=== PATIENT | male | born 1960 | race Caucasian/White ===

== ENCOUNTER 2018-02-16 18:55 | Emergency (ER) | payer OTHER ==
[2018-02-16] MEDS ORDERED: HYDROCODONE/ACETAMINOPHEN 5-325 MG TABLET PO ONE (19:33)
--- NOTE | 2018-02-16 19:34 | ER Document Report ---
ED Hand/Wrist Injury - General Chief Complaint: Thumb Injury Stated Complaint: RIGHT THUMB INJURY Time Seen by Provider: 02/16/18 19:32 Mode of Arrival: Ambulatory Information source: Patient Notes: Patient is a 58-year-old male who presents to the ER today for right thumb injury and head injury after trying to change a tire on his truck and the favio falling, landing on his thumb. He states that the door of the truck swung back and hit him in the left side of the head. He did not lose consciousness, has had no nausea, vomiting, blurred vision. He states he has a large goose egg to the left of his forehead. Patient admits to pain to the right thumb but denies injury elsewhere or pain elsewhere. He states that the thumb was "shaped like an L" and he put it back into place before coming to the emergency department. He denies any numbness or tingling at this time. TRAVEL OUTSIDE OF THE [place] IN LAST 30 DAYS: No - Related Data Allergies/Adverse Reactions: No Known Allergies Allergy (Unverified 02/16/18 18:57) Past Medical History - General Information source: Patient - Social History Smoking Status: Current Every Day Smoker Family History: Reviewed & Not Pertinent Review of Systems - Review of Systems Constitutional: No symptoms reported EENT: No symptoms reported Cardiovascular: No symptoms reported Respiratory: No symptoms reported Gastrointestinal: No symptoms reported Genitourinary: No symptoms reported Male Genitourinary: No symptoms reported Musculoskeletal: See HPI Skin: No symptoms reported Hematologic/Lymphatic: No symptoms reported Neurological/Psychological: See HPI Physical Exam - Vital signs Vitals: Temp Pulse Resp BP Pulse Ox 98.5 F 102 H 18 147/94 H 97 02/16/18 19:05 02/16/18 19:05 02/16/18 19:05 02/16/18 19:05 02/16/18 19:05 - Notes Notes: PHYSICAL EXAMINATION: GENERAL: Uncomfortable appearing, holding right thumb, but in no acute distress. HEAD: Atraumatic, normocephalic. EYES: Pupils equal round and reactive to light, extraocular movements intact, sclera anicteric, conjunctiva are normal. ENT: ear canals without erythema or foreign body, TMs pearly anthony with good bony landmarks, nares patent, oropharynx clear without exudates. Moist mucous membranes. Airway patent NECK: Normal range of motion, supple without lymphadenopathy LUNGS: CTAB and equal. No wheezes rales or rhonchi. HEART: Regular rate and rhythm without murmurs ABDOMEN: Soft, no tenderness. No guarding, no rebound BACK: no vertebral tenderness, normal ROM GI/: no CVA tenderness EXTREMITIES: Tenderness to the base of the right thumb, good capillary refill, normal range of motion, no pitting edema. No cyanosis. NEUROLOGICAL: Cranial nerves grossly intact. Normal sensory/motor exams. Good and equal strength bilaterally, Kernig and Brudzinski's signs negative, Romberg' s test normal, normal heel to miranda testing PSYCH: Normal mood, normal affect. SKIN: Warm, Dry, normal turgor, no rashes or lesions noted Course - Re-evaluation Re-evalutation: 02/16/18 21:27 X-ray reveals a fracture to the first proximal phalanx, slight angulation, patient placed in a thumb spica splint. I see no reason for CAT scan today as he did not lose consciousness and has no neurological deficits. 02/16/18 21:27 Patient given orthopedic follow-up. - Vital Signs Vital signs: Temp Pulse Resp BP Pulse Ox 98.5 F 90 18 149/87 H 98 02/16/18 19:05 02/16/18 21:19 02/16/18 21:19 02/16/18 21:19 02/16/18 21:19 Discharge - Discharge Clinical Impression: Thumb fracture Qualifiers: Encounter type: initial encounter Fracture type: closed Phalanx: proximal Fracture alignment: displaced Laterality: right Qualified Code(s): S62.511A - Displaced fracture of proximal phalanx of right thumb, initial encounter for closed fracture Condition: Stable Disposition: HOME, SELF-CARE Additional Instructions: Return immediately for any new or worsening symptoms. Follow up with orthopedic doctor, call tomorrow to make followup appointment. Referrals: WESTON VALENCIA, [ACTIVE STAFF] - Follow up as needed
--- NOTE | 2018-02-16 20:12 | RADIOLOGY REPORT (SQ) ---
EXAM DESCRIPTION: FINGER RIGHT COMPLETED DATE/TIME: 02/16/2018 7:59 pm REASON FOR STUDY: Pain s/p injury COMPARISON: None. NUMBER OF VIEWS: Three views. TECHNIQUE: AP, lateral, and oblique images acquired of the right thumb. LIMITATIONS: None. FINDINGS: MINERALIZATION: Normal. BONES: There is a transverse fracture of the base of the 1st proximal phalanx. There may be a fractu re component extending to the joint. SOFT TISSUES: No soft tissue swelling. No foreign body. OTHER: No other significant finding. IMPRESSION: Fracture of the 1st proximal phalanx as described. Slight angulation is seen on the lat eral view. COMMENT: SITE OF TRAUMA/COMPLAINT MARKED/STAMP COMPLETED: Yes TECHNICAL DOCUMENTATION: JOB ID: [id number] [employer]- All Rights Reserved Reading location - IP/workstation name: [email or web address]
[2018-02-16] MEDS ORDERED: HYDROCODONE/ACETAMINOPHEN 5-325 MG (6 TAB/ER DISP) PO PRN (20:33)
[2018-02-16 21:20] VITALS: BP 149/87
== END 2018-02-16 21:19 | disposition home or self-care (01) ==
LOC: ER 18:55
DX: S62.511A Displaced fracture of proximal phalanx of right thumb, initial encounter for closed fracture (principal); S09.90XA Unspecified injury of head, initial encounter; W20.8XXA Other cause of strike by thrown, projected or falling object, initial encounter; Y93.89 Activity, other specified; F17.200 Nicotine dependence, unspecified, uncomplicated
CPT/HCPCS: 99283

== ENCOUNTER 2018-06-26 04:20 | Emergency (ER) | payer SELFPAY ==
[2018-06-26 04:29] VITALS: BP 138/78
--- NOTE | 2018-06-26 06:24 | RADIOLOGY REPORT (SQ) ---
CLINICAL DATA: 58-year-old with pain and swelling of the testicles. TECHNICAL DATA: Sagittal and transverse ultrasound imaging and measurement of bilateral testicles with color flow was performed. Comparison: None. FINDINGS: The right testicle measures 4.0 x 3.0 x 3.0 cm and is homogeneous in echogenicity. No focal masses are identified. The right epididymal head measures 1.0 x 1.7 x 0.9 cm. There is normal color flow to the right epididymis.. Doppler imaging demonstrates normal pulsed and color Doppler flow. There is a small right-sided hydrocele. . The left testicle measures 4.5 x 2.4 x 2.8 cm and is homogeneous in echogenicity. The left epididymal head measures 1.0 x 0.8 x 0.7 cm. There is normal color flow to the left epididymal head. Doppler imaging demonstrates normal pulsed and color Doppler flow to the left testicle. There is a very small left-sided hydrocele. There is prominence of the pampiniform plexus during Valsalva with dilatation of the venous structures up to 4 mm. This suggests a varicocele. There are prominent oval hypoechoic mass lesions in the right inguinal region with focal areas of central increased echogenicity compatible with lymph nodes. The largest measures approximately 2.2 cm in length. IMPRESSION: 1. Small right-sided hydrocele. Otherwise, normal sonographic evaluation of the right testicle. 2. Findings suggest a left-sided varicocele and trace left hydrocele. 3. Prominent benign-appearing right inguinal lymph nodes.
[2018-06-26 07:01] LABS: APPEARANCE,URINE SLIGHTLY-CLOUDY; BILIRUBIN,URINE NEGATIVE (NEGATIVE); COLOR,URINE AMBER; GLUCOSE, URINE NEGATIVE (NEGATIVE); KETONES,URINE NEGATIVE (NEGATIVE); LEUKOCYTE ESTERASE,URINE TRACE (NEGATIVE); NITRITE,URINE NEGATIVE (NEGATIVE); PROTEIN,URINE 30 mg/dL (NEGATIVE); URINE SPECIFIC GRAVITY 1.016
[2018-06-26] MEDS ORDERED: LIDOCAINE 1% INJ-PF (10 MG/ML) 30 ML SDV INFIL ONE (07:41)
[2018-06-26] MEDS ORDERED: CEFTRIAXONE INJ 250 MG VIAL IM ONE (07:41)
[2018-06-26] MEDS ORDERED: LEVOFLOXACIN 750 MG TABLET PO ONE (07:45)
--- NOTE | 2018-06-26 07:52 | ER Document Report ---
ED GI/ - General Chief Complaint: Testicular Swelling Stated Complaint: TESTICULAR SWELLING Time Seen by Provider: 06/26/18 06:06 Mode of Arrival: Ambulatory Information source: Patient TRAVEL OUTSIDE OF THE [place] IN LAST 30 DAYS: No - HPI Patient complains to provider of: Other - 58-year-old male that presents for evaluation of testicular swelling and pain over the of the last 2 days. Which is uncomfortable and causes some pain particularly when ambulating or sitting. He notes that slightly interfering now with his work. He is sexually active with a single partner however he thinks that she is likely sleeping with multiple partners at this time they do not use barrier protection. - Related Data Allergies/Adverse Reactions: No Known Allergies Allergy (Verified 06/26/18 06:01) Past Medical History - General Information source: Patient - Social History Smoking Status: Unknown if Ever Smoked Family History: Reviewed & Not Pertinent Patient has suicidal ideation: No Patient has homicidal ideation: No Renal/ Medical History: Denies: Hx Peritoneal Dialysis Review of Systems - Review of Systems -: Yes All other systems reviewed and negative Physical Exam - Vital signs Vitals: Temp Pulse Resp BP Pulse Ox 98.2 F 109 H 18 138/78 H 95 06/26/18 04:20 06/26/18 04:20 06/26/18 04:20 06/26/18 04:20 06/26/18 04:20 - General General appearance: Appears well In distress: None - HEENT Head: Normocephalic Eyes: Normal Conjunctiva: Normal Cornea: Normal Extraocular movements intact: Yes Eyelashes: Normal Pupils: PERRL - Respiratory Respiratory status: No respiratory distress Chest status: Nontender Breath sounds: Normal Chest palpation: Normal - Cardiovascular Rhythm: Regular Heart sounds: Normal auscultation Murmur: No - Abdominal Inspection: Normal Distension: No distension Tenderness: Nontender - Genitourinary Tenderness: Testicle tender, Epididymis tender Cremasteric reflex: Left reflex absent Scrotum: Swelling, Redness - Extremities General upper extremity: Normal inspection, Nontender, Normal ROM, Normal strength General lower extremity: Normal inspection, Nontender, Normal ROM, Normal strength - Neurological Neuro grossly intact: Yes Cognition: Normal Orientation: AAOx4 Redrock Coma Scale Eye Opening: Spontaneous [place] Coma Scale Verbal: Oriented Osvaldo Coma Scale Motor: Obeys Commands Osvaldo Coma Scale Total: 15 Speech: Normal Cranial nerves: Normal Cerebellar coordination: Normal Motor strength normal: LUE, RUE, LLE, RLE - Psychological Associated symptoms: Normal affect Course - Re-evaluation Re-evalutation: 06/26/18 09:08 58-year-old man with testicular swelling as well as pain in the setting of having intercourse with probable sexual partner who is sleeping with multiple partners. Patient had an ultrasound ordered initially for evaluation of potential underlying torsion, ultrasound is consistent with his clinical exam and demonstrates epididymoorchitis. He is at risk for both sexually transmitted infection as well as enteric infection given his age, because of his risk factors will plan for treatment with rocephin and levaquin. He will be given strict return precautions and a brief prescription of narcotic pain medication I do not believe this represents more serious underlying cause of his testicular swelling including but not limited to incarcerated hernia or torsion. - Vital Signs Vital signs: Temp Pulse Resp BP Pulse Ox 98.2 F 109 H 18 138/78 H 95 06/26/18 04:20 06/26/18 04:20 06/26/18 04:20 06/26/18 04:20 06/26/18 04:20 - Laboratory Laboratory results interpreted by me: 06/26/18 06:20 Urine Protein 30 H Urine Blood MODERATE H Urine Urobilinogen 4.0 H Ur Leukocyte Esterase TRACE H Discharge - Discharge Clinical Impression: Acute epididymitis, Orchitis and epididymitis Condition: Good Disposition: HOME, SELF-CARE Instructions: Anti-Inflammatory Medication ([facility]), Epididymitis ([facility]), Levofloxacin, Warm Packs ([facility]) Additional Instructions: Your seen today in the emergency department for your testicle swelling. You had an evaluation including a physical exam and ultrasound and urine test. Use the antibiotic prescribed to you each day for the next 7 days. While you are taking this medicine you should avoid heavy lifting or aggressive activities like playing tennis or anything which will stress her joints too much. You should return in case of any worsening pain swelling fevers or chills inability to eat or drink or urinate. Prescriptions: Levofloxacin [Levaquin 750 mg Tablet] 750 mg PO DAILY #7 tab Forms: Elevated Blood Pressure [facility] [NO LOCAL MD] - Follow up as needed
[2018-06-26] MEDS ORDERED: HYDROCODONE/ACETAMINOPHEN 5-325 MG (6 TAB/ER DISP) PO PRN (07:55)
== END 2018-06-26 09:43 | disposition home or self-care (01) ==
LOC: ER 04:20
DX: N45.1 Epididymitis (principal); N45.2 Orchitis; N50.89 Other specified disorders of the male genital organs; N50.819 Testicular pain, unspecified
CPT/HCPCS: 99284; 96372; 87086; 81001; 76870; 93976; J3490; J0696

== ENCOUNTER 2019-05-27 16:50 | Emergency (ER) | payer SELFPAY ==
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
[2019-05-27] MEDS ORDERED: IBUPROFEN 800 MG TABLET PO ONE (17:20)
[2019-05-27 18:11] LABS: ABSOLUTE BASOPHILS # (AUTO) 0.1 10^3/uL (0.0-0.2); ABSOLUTE EOSINOPHILS # (AUTO) 0.6 10^3/uL (0.0-0.6); ABSOLUTE LYMPHOCYTES (AUTO) 2.5 10^3/uL (0.5-4.7); ABSOLUTE MONOCYTES (AUTO) 0.8 10^3/uL (0.1-1.4); ABSOLUTE NEUT (AUTO) 7.3 10^3/uL (1.7-8.2); BASOPHILS % (AUTO) 0.5 % (0-2); EOSINOPHILS % (AUTO) 5.5 % (0-6); HEMATOCRIT 42.7 % (37.9-51.0); HEMOGLOBIN 14.6 g/dL (13.5-17.0); LYMPHOCYTES % (AUTO) 22.3 % (13-45); MEAN CORPUSCULAR HEMOGLOBIN 31.5 pg (27.0-33.4); MEAN CORPUSCULAR HGB CONC 34.3 g/dL (32.0-36.0); MEAN CORPUSCULAR VOLUME 92 fl (80-97); PLATELET COUNT 287 10^3/uL (150-450); RED BLOOD COUNT 4.65 10^6/uL (4.35-5.55); RED CELL DISTRIBUTION WIDTH 12.7 % (11.5-14.0); SEGMENTED NEUTROPHILS % (AUTO) 64.7 % (42-78); TOTAL CELLS COUNTED % (AUTO) 100 %; WHITE BLOOD COUNT 11.3 10^3/uL (4.0-10.5)
[2019-05-27 18:33] LABS: ALBUMIN 4.4 g/dL (3.5-5.0); ALKALINE PHOSPHATASE 57 U/L (38-126); ANION GAP 8 (5-19); ASPARTATE AMINO TRANSFERASE 26 U/L (17-59); BILIRUBIN,DIRECT 0.1 mg/dL (0.0-0.4); BILIRUBIN,TOTAL 0.5 mg/dL (0.2-1.3); BLOOD UREA NITROGEN 15 mg/dL (7-20); CALCIUM 9.6 mg/dL (8.4-10.2); CARBON DIOXIDE 28 mmol/L (22-30); CHLORIDE 102 mmol/L (98-107); GLUCOSE 84 mg/dL (75-110); POTASSIUM 4.6 mmol/L (3.6-5.0); TOTAL PROTEIN 7.3 g/dL (6.3-8.2)
--- NOTE | 2019-05-27 18:56 | RADIOLOGY REPORT (SQ) ---
EXAM DESCRIPTION: KNEE RIGHT 4 VIEWS COMPLETED DATE/TIME: 05/27/2019 5:38 pm REASON FOR STUDY: pain swelling and erythema to the right knee COMPARISON: None. NUMBER OF VIEWS: Four views. TECHNIQUE: AP, lateral, and both oblique radiographic images acquired of the right knee. LIMITATIONS: None. FINDINGS: MINERALIZATION: Normal. BONES: No acute fracture or dislocation. No worrisome bone lesions. JOINT: No effusion. SOFT TISSUES: Prepatellar soft tissue swelling. OTHER: No other significant finding. IMPRESSION: Soft tissue swelling. No acute abnormality of the bones or joint. TECHNICAL DOCUMENTATION: JOB ID: [id number] [employer]- All Rights Reserved Reading location - IP/workstation name: [email or web address]
--- NOTE | 2019-05-27 21:09 | ER Document Report ---
ED Extremity Problem, Lower - General Chief Complaint: Knee Injury Stated Complaint: BLOOD PRESSURE ISSUE Time Seen by Provider: 05/27/19 17:14 Mode of Arrival: Ambulatory TRAVEL OUTSIDE OF THE [place] IN LAST 30 DAYS: No - HPI Notes: This is a 59-year-old gentleman who presents today with a complaint of right knee pain. Patient states he noticed some pain and swelling at the top of the knee. He states he had "a bump" which he picked. He denies any drainage from that. He denies any trauma. 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 He denies any trouble flexing or extending his knee. Describes his pain is mild. He denies any fever or chills. There are no obvious aggravating or relieving factors. - Related Data Allergies/Adverse Reactions: No Known Allergies Allergy (Verified 05/27/19 17:15) Past Medical History - General Information source: Patient - Social History Smoking Status: Current Every Day Smoker Chew tobacco use (# tins/day): No Frequency of alcohol use: None Drug Abuse: None Family History: Reviewed & Not Pertinent Patient has suicidal ideation: No Patient has homicidal ideation: No Renal/ Medical History: Denies: Hx Peritoneal Dialysis Review of Systems - Review of Systems Constitutional: denies: Fever Cardiovascular: denies: Chest pain, Dyspnea Musculoskeletal: Joint pain, Joint swelling -: Yes All other systems reviewed and negative Physical Exam - Vital signs Vitals: Temp Pulse Resp BP Pulse Ox 98.0 F 83 20 155/85 H 98 05/27/19 16:59 05/27/19 16:59 05/27/19 16:59 05/27/19 16:59 05/27/19 16:59 - General General appearance: Appears well, Alert - Respiratory Respiratory status: No respiratory distress Chest status: Nontender Breath sounds: Normal Chest palpation: Normal - Cardiovascular Rhythm: Regular Heart sounds: Normal auscultation Murmur: No - Abdominal Inspection: Normal Distension: No distension Bowel sounds: Normal Tenderness: Nontender Organomegaly: No organomegaly - Extremities General upper extremity: Normal inspection, Nontender, Normal color, Normal ROM, Normal temperature General lower extremity: Nontender, Normal color, Normal ROM, Normal weight bearing. No: Mary's sign Knee: Abrasion, Other - There is slight right prepatellar warmth and erythema. There appears to be a small abrasion. There is no obvious knee effusion. Patient is able to flex and extend his knee fully without any problems. There is no ligamentous laxity. Normal distal neurovascular exam of the right lower extremity.. No: Joint effusion, Laxity with valgus stress, Laxity with varus stress, Unable to bear weight - Psychological Associated symptoms: Normal affect, Normal mood - Skin Skin Temperature: Warm Skin Moisture: Dry Skin Color: Normal, Other - Slight prepatellar erythema as described in the knee exam. Course - Re-evaluation Re-evalutation: 05/27/19 21:09 Differential diagnosis includes prepatellar bursitis versus cellulitis versus knee contusion. There is no clinical suspicion of septic joint given the fact that there is no effusion, and patient is able to fully flex and extend his knee without any problems. X-ray reviewed shows slight soft tissue prepatellar swelling. I will be consistent with a prepatellar bursitis and probable slight cellulitis. I will put this patient in clindamycin, knee immobilizer and have him follow-up with orthopedics. Labs unremarkable. Patient counseled to return immediately if swelling or redness gets worse, he says having any trouble flexing his knee. He understands. - Vital Signs Vital signs: Temp Pulse Resp BP Pulse Ox 98.0 F 83 20 155/85 H 98 05/27/19 16:59 05/27/19 16:59 05/27/19 16:59 05/27/19 16:59 05/27/19 16:59 - Laboratory Result Diagrams: 05/27/19 17:55 05/27/19 17:55 Laboratory results interpreted by me: 05/27/19 17:55 WBC 11.3 H Discharge - Discharge Clinical Impression: Prepatellar bursitis of right knee Cellulitis Qualifiers: Site of cellulitis: extremity Site of cellulitis of extremity: lower extremity Laterality: right Qualified Code(s): L03.115 - Cellulitis of right lower limb Condition: Good Disposition: HOME, SELF-CARE Instructions: Bursitis ([facility]), Cellulitis ([facility]), Knee Immobilizing Splint ([facility]) Additional Instructions: Return if worsening swelling, redness, or you start having trouble bending the knee. Prescriptions: Clindamycin HCl 300 mg PO TID #30 capsule Referrals: JENN HARTLEY MD [ACTIVE PROVISIONAL STAFF] - Follow up tomorrow (Call tomorrow for follow-up appointment.)
[2019-05-27] MEDS ORDERED: CLINDAMYCIN PHOSPHATE INJ 300 MG/2 ML SDV IM ONE (21:13)
[2019-05-27 21:56] VITALS: BP 152/81
== END 2019-05-27 21:56 | disposition home or self-care (01) ==
LOC: ER 16:50
DX: M70.41 Prepatellar bursitis, right knee (principal); L03.115 Cellulitis of right lower limb; F17.200 Nicotine dependence, unspecified, uncomplicated
CPT/HCPCS: 36415; 87040; 85025; 80053; 73564; J3490

== ENCOUNTER 2019-06-03 15:41 | Inpatient (IN) | payer SELFPAY ==
--- NOTE | 2019-06-03 16:02 | ER Document Report ---
ED Medical Screen (RME) - General Stated Complaint: RE-VISIT/RIGHT KNEE PAIN, SWELLING Time Seen by Provider: 06/03/19 15:54 Mode of Arrival: Ambulatory Information source: Patient Notes: This 59-year-old male presents today with complaints of increasing infection to his right knee. He reports he was seen here on May 28 treated with clindamycin. Reports increasing infection. Denies fever vomiting diarrhea. Re ports he took Motrin this morning. I have greeted and performed a rapid initial assessment of this patient. A comprehensive ED assessment and evaluation of the patient, analysis of test results and completion of the medical decision making process will be conducted by additional ED providers. Dictation of this chart was performed using voice recognition software; therefore, there may be some unintended grammatical errors. TRAVEL OUTSIDE OF THE [place] IN LAST 30 DAYS: No - Related Data Allergies/Adverse Reactions: No Known Allergies Allergy (Verified 05/27/19 17:15) Past Medical History Renal/ Medical History: Denies: Hx Peritoneal Dialysis Physical Exam - Vital signs Vitals: Temp Pulse Resp BP Pulse Ox 97.9 F 92 18 185/90 H 100 06/03/19 15:46 06/03/19 15:46 06/03/19 15:46 06/03/19 15:46 06/03/19 15:46 Course - Vital Signs Vital signs: Temp Pulse Resp BP Pulse Ox 97.9 F 92 18 185/90 H 100 06/03/19 15:46 06/03/19 15:46 06/03/19 15:46 06/03/19 15:46 06/03/19 15:46
[2019-06-03 16:31] LABS: ABSOLUTE BASOPHILS # (AUTO) 0.1 10^3/uL (0.0-0.2); ABSOLUTE EOSINOPHILS # (AUTO) 0.8 10^3/uL (0.0-0.6); ABSOLUTE LYMPHOCYTES (AUTO) 2.4 10^3/uL (0.5-4.7); ABSOLUTE MONOCYTES (AUTO) 0.7 10^3/uL (0.1-1.4); ABSOLUTE NEUT (AUTO) 6.4 10^3/uL (1.7-8.2); BASOPHILS % (AUTO) 0.5 % (0-2); EOSINOPHILS % (AUTO) 7.6 % (0-6); HEMATOCRIT 43.1 % (37.9-51.0); LYMPHOCYTES % (AUTO) 22.9 % (13-45); MEAN CORPUSCULAR HEMOGLOBIN 31.3 pg (27.0-33.4); MEAN CORPUSCULAR HGB CONC 34.8 g/dL (32.0-36.0); MEAN CORPUSCULAR VOLUME 90 fl (80-97); MONOCYTES % (AUTO) 6.9 % (3-13); PLATELET COUNT 355 10^3/uL (150-450); RED BLOOD COUNT 4.78 10^6/uL (4.35-5.55); RED CELL DISTRIBUTION WIDTH 12.5 % (11.5-14.0); SEGMENTED NEUTROPHILS % (AUTO) 62.1 % (42-78); TOTAL CELLS COUNTED % (AUTO) 100 %; WHITE BLOOD COUNT 10.3 10^3/uL (4.0-10.5)
[2019-06-03 16:41] LABS: ALBUMIN 4.1 g/dL (3.5-5.0); ALKALINE PHOSPHATASE 58 U/L (38-126); ANION GAP 6 (5-19); ASPARTATE AMINO TRANSFERASE 26 U/L (17-59); BILIRUBIN,DIRECT 0.2 mg/dL (0.0-0.4); BILIRUBIN,TOTAL 0.3 mg/dL (0.2-1.3); BLOOD UREA NITROGEN 14 mg/dL (7-20); CALCIUM 9.2 mg/dL (8.4-10.2); CARBON DIOXIDE 29 mmol/L (22-30); CHLORIDE 102 mmol/L (98-107); GLUCOSE 92 mg/dL (75-110); POTASSIUM 4.4 mmol/L (3.6-5.0)
--- NOTE | 2019-06-03 18:15 | RADIOLOGY REPORT (SQ) ---
EXAM DESCRIPTION: KNEE RIGHT 4 VIEWS COMPLETED DATE/TIME: 06/03/2019 5:55 pm REASON FOR STUDY: increased pain red and swelling COMPARISON: None. NUMBER OF VIEWS: Four views. TECHNIQUE: AP, lateral, and both oblique radiographic images acquired of the right knee. LIMITATIONS: None. FINDINGS: MINERALIZATION: Normal. BONES: No acute fracture or dislocation. No worrisome bone lesions. JOINT: No effusion. SOFT TISSUES: Marked prepatellar soft tissue swelling. OTHER: No other significant finding. IMPRESSION: Prepatellar soft tissue swelling. No joint effusion. No osseous abnormality. TECHNICAL DOCUMENTATION: JOB ID: [id number] [employer]- All Rights Reserved Reading location - IP/workstation name: [email or web address]
--- NOTE | 2019-06-03 19:37 | ER Document Report ---
ED Extremity Problem, Lower - General Chief Complaint: Knee Pain Stated Complaint: RE-VISIT/RIGHT KNEE PAIN, SWELLING Time Seen by Provider: 06/03/19 15:54 Mode of Arrival: Ambulatory Information source: Patient Notes: 59-year-old male presented to ED for complaint of increasing infection to the right knee. He states he was seen on May 28 and started on clindamycin and he has been taking his medications as prescribed. He states he has not been able to follow-up with orthopedics because he has no insurance and cannot follow-up with orthopedics. He denies any other symptoms but pain and swelling to the knee. He states the redness is starting to travel up his leg and he is becoming concerned because he needs to work. Patient is alert oriented respirations regular and unlabored speaking in full sentences. He states he is taken Motrin for his pain but the pain is not getting better TRAVEL OUTSIDE OF THE [place] IN LAST 30 DAYS: No - HPI Patient complains to provider of: Pain, Swelling, Other - Erythema Location: Knee - Right knee Occurred: Last week Where: Other - States he had a insect bite that he scratched and then it became infected Onset/Duration: Sudden, Worse Quality of pain: Sharp, Throbbing Severity: Moderate Pain Level: 3 Context: Other - Increased pain swelling and redness Recent injury: No - Had an insect bite which he scratched which became infected and is now spread Associated symptoms: Painful ambulation Exacerbated by: Hanging down, Movement, Walking Relieved by: Elevation - Related Data Allergies/Adverse Reactions: No Known Allergies Allergy (Verified 05/27/19 17:15) Past Medical History - General Information source: Patient - Social History Smoking Status: Current Every Day Smoker Cigarette use (# per day): Yes - Pack per day Chew tobacco use (# tins/day): No Smoking Education Provided: Yes - 4 minutes Frequency of alcohol use: None Drug Abuse: None Lives with: Alone Family History: Reviewed & Not Pertinent Patient has suicidal ideation: No Patient has homicidal ideation: No - Past Medical History Cardiac Medical History: Reports: None Pulmonary Medical History: Reports: None EENT Medical History: Reports: None Neurological Medical History: Reports: None Endocrine Medical History: Reports: None Renal/ Medical History: Reports: None GI Medical History: Reports: None Musculoskeletal Medical History: Reports None Skin Medical History: Reports None Psychiatric Medical History: Reports: None Traumatic Medical History: Reports: None Infectious Medical History: Reports: None Surgical Hx: Negative Past Surgical History: Reports: None Review of Systems - Review of Systems Constitutional: No symptoms reported EENT: No symptoms reported Cardiovascular: No symptoms reported Respiratory: No symptoms reported Gastrointestinal: No symptoms reported Genitourinary: No symptoms reported Male Genitourinary: No symptoms reported Musculoskeletal: Joint pain, Joint swelling - Redness pain and swelling to the right knee Skin: No symptoms reported Hematologic/Lymphatic: No symptoms reported Neurological/Psychological: No symptoms reported -: Yes All other systems reviewed and negative Physical Exam - Vital signs Vitals: Temp Pulse Resp BP Pulse Ox 97.9 F 92 18 185/90 H 100 06/03/19 15:46 06/03/19 15:46 06/03/19 15:46 06/03/19 15:46 06/03/19 15:46 Interpretation: Normal - General General appearance: Appears well, Alert - HEENT Head: Normocephalic, Atraumatic Eyes: Normal Pupils: PERRL - Respiratory Respiratory status: No respiratory distress Chest status: Nontender Breath sounds: Normal Chest palpation: Normal - Cardiovascular Rhythm: Regular Heart sounds: Normal auscultation Murmur: No - Abdominal Inspection: Normal Distension: No distension Bowel sounds: Normal Tenderness: Nontender Organomegaly: No organomegaly - Back Back: Normal, Nontender - Extremities General upper extremity: Normal inspection, Nontender, Normal color, Normal ROM, Normal temperature General lower extremity: Normal weight bearing. No: Mary's sign Knee: Tender, Pain with ROM, Patellar tendon intact, Other - Erythema swelling. No: Abrasion, Deformity, Drawer's test instability, Ecchymosis, Instability, Laceration, Laxity with valgus stress, Laxity with varus stress, Popliteal fossa tender, Tender joint line - And he has no - Neurological Neuro grossly intact: Yes Cognition: Normal Orientation: AAOx4 [place] Coma Scale Eye Opening: Spontaneous [place] Coma Scale Verbal: Oriented [place] Coma Scale Motor: Obeys Commands Osvaldo Coma Scale Total: 15 Speech: Normal Motor strength normal: LUE, RUE, LLE, RLE Sensory: Normal - Psychological Associated symptoms: Normal affect, Normal mood - Skin Skin Temperature: Warm Skin Moisture: Dry Skin Color: Normal Course - Re-evaluation Re-evalutation: 06/03/19 19:49 Dr. Judd came saw the patient will admit the patient and determined in the morning whether he needs to go to surgery or just get IV antibiotics. He requested a gram of vancomycin be ordered now urine drug screen CRP urine chest x-ray and EKG. These have all been ordered. - Vital Signs Vital signs: Temp Pulse Resp BP Pulse Ox 98.5 F 75 20 153/75 H 100 06/03/19 22:42 06/03/19 20:48 06/03/19 22:42 06/03/19 22:42 06/03/19 22:42 - Laboratory Result Diagrams: 06/03/19 16:09 06/03/19 16:09 Laboratory results interpreted by me: 06/03/19 06/03/19 16:09 16:09 Eos % (Auto) 7.6 H Absolute Eos (auto) 0.8 H C-Reactive Protein 15.4 H - Diagnostic Test Radiology reviewed: Image reviewed, Reports reviewed - Consults Dutch Time consulted: 19:15 Reason for consultation: 06/03/19 19:48 red swollen painful knee has been on clindamycin Consulted provider: will come to ER Discharge - Discharge Clinical Impression: Right knee skin infection Condition: Stable Disposition: ADMITTED INPATIENT Admitting Provider: Dr Judd Unit Admitted: Medical Floor
[2019-06-03] MEDS ORDERED: VANCOMYCIN HCL INJ 1000 MG VIAL IV ONE (19:46)
--- NOTE | 2019-06-03 20:24 | RADIOLOGY REPORT (SQ) ---
XR CHEST 1 VIEW EXAM DATE: 06/03/2019 12:00 AM CDT HISTORY: Preoperative. COMPARISON: None. FINDINGS: The heart size is within normal limits. No consolidation, pleural effusion, or pneumothorax is seen. No acute bony findings. IMPRESSION: No evidence of acute cardiopulmonary disease.
[2019-06-03] MEDS ORDERED: OXYCODONE-ACETAMINOPHEN 5-325 MG TABLET PO PRN (20:51)
[2019-06-03] MEDS ORDERED: MAG HYDROX/AL HYDROX/SIMETH SUSP 30 ML UDCUP PO PRN (20:51)
[2019-06-03 21:02] LABS: APPEARANCE,URINE CLEAR; BILIRUBIN,URINE NEGATIVE (NEGATIVE); COLOR,URINE STRAW; GLUCOSE, URINE NEGATIVE (NEGATIVE); KETONES,URINE NEGATIVE (NEGATIVE); LEUKOCYTE ESTERASE,URINE NEGATIVE (NEGATIVE); NITRITE,URINE NEGATIVE (NEGATIVE); PROTEIN,URINE NEGATIVE (NEGATIVE); URINE SPECIFIC GRAVITY 1.004; UROBILINOGEN,URINE NEGATIVE mg/dL (<2.0)
[2019-06-03 21:11] LABS: URINE AMPHETAMINES SCREEN NEGATIVE; URINE BARBITURATES SCREEN NEGATIVE; URINE BENZODIAZEPINES SCREEN NEGATIVE; URINE COCAINE SCREEN NEGATIVE; URINE MARIJUANA (THC) SCREEN NEGATIVE; URINE METHADONE SCREEN NEGATIVE; URINE PHENCYCLIDINE SCREEN NEGATIVE
--- NOTE | 2019-06-03 21:39 | PDOC H&P ---
History of Present Illness Admission Date/PCP: 06/03/19 19:49 History of Present Illness: NASH HENAO is a 59-year-old male presented to ED for complaint of increasing infection to the right knee. The patient was seen in the ED on May 28 and treated with clindamycin to be taken at home. He reports compliance in medication use. He was instructed to follow with orthopedics, but due to his lack of insurance, he did not. It does not appear that orthopedics was contacted on that visit for him to establish a follow up for. Pain and swelling have increased since that time. He has difficulty with the extremes of ROM, but has been ambulating without severe pain. He does report that the erythema has been progressing up and down the leg from the knee. He reports a bug bite prior to his initial visit that he scratched and has progressed. He denies fevers, or drainage from the sight. He is taken Motrin for his pain but the pain is not getting better Past Medical History Cardiac Medical History: Reports: None Pulmonary Medical History: Reports: None EENT Medical History: Reports: None Neurological Medical History: Reports: None Endocrine Medical History: Reports: None Renal/ Medical History: Reports: None GI Medical History: Reports: None Musculoskeltal Medical History: Reports: None Skin Medical History: Reports: None Psychiatric Medical History: Reports: None Traumatic Medical History: Reports: None Infectious Medical History: Reports: None Past Surgical History Past Surgical History: Reports: None Social History Lives with: Alone Smoking Status: Current Every Day Smoker Cigarettes Packs Per Day: 1 Electronic Cigarette use?: No Frequency of Alcohol Use: Rare Drugs: None - Advance Directive Resuscitation Status: Full Code Family History Family History: Reviewed & Not Pertinent Parental Family History Reviewed: No Children Family History Reviewed: No Sibling(s) Family History Reviewed.: No Medication/Allergy Home Medications: Levofloxacin [Levaquin 750 mg Tablet] 750 mg PO DAILY #7 tab 06/26/18 Clindamycin HCl 300 mg PO TID #30 capsule 05/27/19 Allergies/Adverse Reactions: No Known Allergies Allergy (Verified 05/27/19 17:15) Review of Systems All systems: as per PMH Constitutional: ABSENT: chills, fever(s), headache(s) Eyes: ABSENT: visual disturbances Ears: ABSENT: hearing changes Nose, Mouth, and Throat: PRESENT: mouth pain. ABSENT: headache(s), vertigo Cardiovascular: PRESENT: orthropnea, palpitations. ABSENT: chest pain, dyspnea on exertion Respiratory: ABSENT: cough, dyspnea Gastrointestinal: ABSENT: abdominal pain, constipation, diarrhea, hematemesis, hematochezia, nausea, vomiting Genitourinary: ABSENT: dysuria Musculoskeletal: PRESENT: joint swelling Integumentary: PRESENT: erythema, lesions, pruritus, rash Neurological: ABSENT: abnormal gait, abnormal speech, confusion, dizziness, focal weakness, syncope Psychiatric: ABSENT: anxiety Hematologic/Lymphatic: ABSENT: easy bleeding, easy bruising Physical Exam Vital Signs: Temp Pulse Resp BP Pulse Ox 97.9 F 75 16 151/72 H 100 06/03/19 20:48 06/03/19 20:48 06/03/19 20:48 06/03/19 20:48 06/03/19 20:48 Intake & Output 06/02/19 06/03/19 06/04/19 06:59 06:59 06:59 Output Total 275 Balance -275 Weight 69.7 kg Physical Exam: General appearance: PRESENT: no acute distress, cooperative, well-nourished Head exam: PRESENT: atraumatic, normocephalic Eye exam: PRESENT: EOMI Ear exam: PRESENT: normal external ear exam Mouth exam: PRESENT: neck supple Neck exam: ABSENT: tracheal deviation Respiratory exam: PRESENT: symmetrical, unlabored. ABSENT: accessory muscle use, wheezes Pulses: PRESENT: normal radial pulses, normal dorsalis pedis pul Vascular exam: PRESENT: normal capillary refill GI/Abdominal exam: ABSENT: distended, firm Extremities exam: PRESENT: full ROM of bilateral shoulders, elbows wrists, knees, hips and ankles without pain Musculoskeletal exam: PRESENT: full ROM, normal inspection Neurological exam: PRESENT: alert, awake, oriented to person, oriented to place, oriented to time Psychiatric exam: PRESENT: appropriate affect. ABSENT: agitated Focused psych exam: ABSENT: catatonic Skin exam: PRESENT: intact. ABSENT: dry All as above aside from that noted in the HPI and the following: Right knee with pre-patellar swelling. No open skin lesion, no drainage. On palpation it is difficult to appreciate a drainable abscess. May be soft tissue swelling and cellulitis more than an abscess. No palpable knee effusion. No tenderness outside of the prepatellar bursa area. There is a visible old eschar where prior lesion has healed over without any visible purulent collection or subcutaneous collection. Patient is able to tolerate ambulation without much pain. Mid range ROM is tolerable without pain to full extension, pain is present at greater than 90 degrees of flexion Grossly NVI distally Erythema tracking proximally 1/3 of thigh and tibia Results Laboratory Results: 06/03/19 16:09 06/03/19 16:09 06/03/19 06/03/19 06/03/19 16:09 16:09 16:09 WBC 10.3 RBC 4.78 Hgb 15.0 Hct 43.1 MCV 90 MCH 31.3 MCHC 34.8 RDW 12.5 Plt Count 355 Seg Neutrophils % 62.1 Sodium 137.1 Potassium 4.4 Chloride 102 Carbon Dioxide 29 Anion Gap 6 BUN 14 Creatinine 0.75 Est GFR ( Amer) > 60 Glucose 92 Calcium 9.2 Total Bilirubin 0.3 AST 26 Alkaline Phosphatase 58 C-Reactive Protein 15.4 H Total Protein 7.0 Albumin 4.1 Urine Color Urine Appearance Urine pH Ur Specific [place] Urine Protein Urine Glucose (UA) Urine Ketones Urine Blood Urine Nitrite Ur Leukocyte Esterase Urine WBC (Auto) Urine RBC (Auto) 06/03/19 20:30 WBC RBC Hgb Hct MCV MCH MCHC RDW Plt Count Seg Neutrophils % Sodium Potassium Chloride Carbon Dioxide Anion Gap BUN Creatinine Est GFR ( Amer) Glucose Calcium Total Bilirubin AST Alkaline Phosphatase C-Reactive Protein Total Protein Albumin Urine Color STRAW Urine Appearance CLEAR Urine pH 7.0 Ur Specific [place] 1.004 Urine Protein NEGATIVE Urine Glucose (UA) NEGATIVE Urine Ketones NEGATIVE Urine Blood MODERATE H Urine Nitrite NEGATIVE Ur Leukocyte Esterase NEGATIVE Urine WBC (Auto) 1 Urine RBC (Auto) 3 Impressions: Chest X-Ray 06/03/19 00:00 IMPRESSION: No evidence of acute cardiopulmonary disease. Knee X-Ray 06/03/19 17:46 IMPRESSION: Prepatellar soft tissue swelling. No joint effusion. No osseous abnormality. Assessment & Plan - Diagnosis (1) Tobacco abuse Is this a current diagnosis for this admission?: Yes (2) Right knee skin infection Is this a current diagnosis for this admission?: Yes Plan: He has potential pre-patellar septic bursitis with surrounding cellulitis - Given I cannot appreciate a drainable abscess at this time, but the symptoms continue to progress without improvement from home ABX mgmt, I will admit for IV abx and re-evaluate in the AM. If no improvement I may need to proceed with operative exploration, Incision and drainage. He is tentatively on the OR schedule for tomorrow AM. - This does not appear to be intra-articular given his exam and overall comfort with ambulating and moving the knee joint - Currently on Vancomycin - Will have hospitalist evaluate for further recommendations - Will follow blood cultures - MRSA screen - UDS - Will trend CRP - Ambulation, ASA and SCDs for DVT PPX (3) Cellulitis Qualifiers: Site of cellulitis: extremity Site of cellulitis of extremity: lower extremity Laterality: right Qualified Code(s): L03.115 - Cellulitis of right lower limb (4) Prepatellar bursitis of right knee Is this a current diagnosis for this admission?: Yes
[2019-06-03] MEDS ORDERED: VANCOMYCIN HCL INJ 1000 MG VIAL IV SCH (22:45)
[2019-06-04] MEDS: ACETAMINOPHEN 325 MG TABLET PO PRN ×3 (00:19→17:05)
[2019-06-04] MEDS: NORMAL SALINE 1000 ML 1,000 ML IV PRN ×2 (00:22→07:43)
--- NOTE | 2019-06-04 06:46 | EKG REPORT ---
SEVERITY:- ABNORMAL ECG - SINUS RHYTHM LEFT VENTRICULAR HYPERTROPHY ANTERIOR Q WAVES, POSSIBLY DUE TO LVH : Confirmed by: Dominic Tang MD 04-Jun-2019 06:45:50
[2019-06-04] MEDS ORDERED: PIPERACILLIN/TAZOBACTAM 3.375 GM VIAL IV SCH (09:00)
[2019-06-04] MEDS: DOCUSATE SODIUM 100 MG CAPSULE PO SCH (09:17)
[2019-06-04] MEDS: PIPERACILLIN SODIUM/TAZOBACTAM 3.375 GM in NORMAL SALINE 100 ML IV SCH ×2 (09:48→17:06)
[2019-06-04] MEDS: ASPIRIN 325 MG TABLET PO SCH ×2 (09:48→17:05)
[2019-06-04] MEDS: PREDNISONE 10 MG TABLET PO SCH ×2 (09:48→17:05)
[2019-06-04] MEDS: IPRATROPIUM/ALBUTEROL 0.5-2.5 MG/3 ML AMPUL NEB SCH ×3 (09:52→20:15)
--- NOTE | 2019-06-04 10:11 | RADIOLOGY REPORT (SQ) ---
EXAM DESCRIPTION: U/S EXTREMITY NONVASCULAR LTD COMPLETED DATE/TIME: 06/04/2019 9:46 am REASON FOR STUDY: Evaluate for Abscess pre-patellar right knee COMPARISON: 06/03/2019 TECHNIQUE: Dynamic and static grayscale images acquired of the localized site of clinical concern an d recorded on PACS. Additional selected color Doppler and spectral images recorded. SITE OF CONCERN: Right knee LIMITATIONS: None. FINDINGS: SKIN AND SUBCUTANEOUS TISSUES: There is skin thickening and subcutaneous edema along the r ight knee and patella with small more focal complex pockets. No clearly identifiable drainable colle ction. There is a more focal collection inferior to the knee measuring 4.1 x 4.1 x 0.6 cm. VASCULAR: Not imaged. OTHER: No other significant finding. IMPRESSION: Subcutaneous edema along the right knee and patella with small more focal complex pocket s which are not amenable to drainage. Findings possibly related to cellulitis. There is a more foca l collection inferior to the knee measuring 4.1 x 4.1 x 0.6 cm. TECHNICAL DOCUMENTATION: JOB ID: [id number] [employer]- All Rights Reserved Reading location - IP/workstation name: [email or web address]
[2019-06-04] MEDS: VANCOMYCIN HCL 1,500 MG in DEXTROSE 5%-WATER 250 ML IV SCH ×2 (11:13→23:53)
[2019-06-04] MEDS ORDERED: INFLUENZA QUAD (6MOS+) 2019-20 VAC 0.5 ML SYR IM ONE (13:00)
--- NOTE | 2019-06-04 14:27 | PDOC PROGRESS REPORT ---
Subjective Progress Note for:: 06/04/19 Subjective:: The patient reports improvement in right knee symptoms. Otherwise no new symptoms or overnight events. Reason For Visit: RIGHT KNEE PREPATELLAR SEPTIC BURSITIS Physical Exam Vital Signs: Temp Pulse Resp BP Pulse Ox 97.8 F 70 14 158/71 H 96 06/04/19 11:36 06/04/19 14:00 06/04/19 14:00 06/04/19 11:36 06/04/19 14:00 Intake & Output 06/03/19 06/04/19 06/05/19 06:59 06:59 06:59 Intake Total 1622 1264 Output Total 275 Balance 1347 1264 Weight 68.1 kg Physical Exam: General appearance: PRESENT: no acute distress, cooperative, well-nourished Head exam: PRESENT: atraumatic, normocephalic Eye exam: PRESENT: EOMI Ear exam: PRESENT: normal external ear exam Mouth exam: PRESENT: neck supple Neck exam: ABSENT: tracheal deviation Respiratory exam: PRESENT: symmetrical, unlabored. ABSENT: accessory muscle use, wheezes Pulses: PRESENT: normal radial pulses, normal dorsalis pedis pul Vascular exam: PRESENT: normal capillary refill GI/Abdominal exam: ABSENT: distended, firm Extremities exam: PRESENT: full ROM of bilateral shoulders, elbows wrists, knees, hips and ankles without pain Musculoskeletal exam: PRESENT: full ROM, normal inspection Neurological exam: PRESENT: alert, awake, oriented to person, oriented to place, oriented to time Psychiatric exam: PRESENT: appropriate affect. ABSENT: agitated Focused psych exam: ABSENT: catatonic Skin exam: PRESENT: intact. ABSENT: dry All as above aside from that noted in the HPI and the following: Right knee with pre-patellar swelling. No open skin lesion, no drainage. On palpation it is difficult to appreciate a drainable abscess. May be soft tissue swelling and cellulitis more than an abscess. No palpable knee effusion. No tenderness outside of the prepatellar bursa area. There is a visible old eschar where prior lesion has healed over without any visible purulent collection or subcutaneous collection. Patient is able to tolerate ambulation without much pain. Mid range ROM is tolerable without pain to full extension, pain is present at greater than 90 degrees of flexion Grossly NVI distally - Erythema has much improved and has become focal about a 2-3cm radius about the patella, much regressed from the thigh and tibia as per skin markings. Results Laboratory Results: 06/03/19 16:09 06/03/19 16:09 06/03/19 06/03/19 06/03/19 16:09 16:09 16:09 WBC 10.3 RBC 4.78 Hgb 15.0 Hct 43.1 MCV 90 MCH 31.3 MCHC 34.8 RDW 12.5 Plt Count 355 Seg Neutrophils % 62.1 Sodium 137.1 Potassium 4.4 Chloride 102 Carbon Dioxide 29 Anion Gap 6 BUN 14 Creatinine 0.75 Est GFR ( Amer) > 60 Glucose 92 Calcium 9.2 Total Bilirubin 0.3 AST 26 Alkaline Phosphatase 58 C-Reactive Protein 15.4 H Total Protein 7.0 Albumin 4.1 Urine Color Urine Appearance Urine pH Ur Specific [place] Urine Protein Urine Glucose (UA) Urine Ketones Urine Blood Urine Nitrite Ur Leukocyte Esterase Urine WBC (Auto) Urine RBC (Auto) 06/03/19 20:30 WBC RBC Hgb Hct MCV MCH MCHC RDW Plt Count Seg Neutrophils % Sodium Potassium Chloride Carbon Dioxide Anion Gap BUN Creatinine Est GFR ( Amer) Glucose Calcium Total Bilirubin AST Alkaline Phosphatase C-Reactive Protein Total Protein Albumin Urine Color STRAW Urine Appearance CLEAR Urine pH 7.0 Ur Specific [place] 1.004 Urine Protein NEGATIVE Urine Glucose (UA) NEGATIVE Urine Ketones NEGATIVE Urine Blood MODERATE H Urine Nitrite NEGATIVE Ur Leukocyte Esterase NEGATIVE Urine WBC (Auto) 1 Urine RBC (Auto) 3 Impressions: Chest X-Ray 06/03/19 00:00 IMPRESSION: No evidence of acute cardiopulmonary disease. Knee X-Ray 06/03/19 17:46 IMPRESSION: Prepatellar soft tissue swelling. No joint effusion. No osseous abnormality. Extremity Ultrasound 06/04/19 00:00 IMPRESSION: Subcutaneous edema along the right knee and patella with small more focal complex pockets which are not amenable to drainage. Findings possibly related to cellulitis. There is a more focal collection inferior to the knee measuring 4.1 x 4.1 x 0.6 cm. Assessment & Plan - Diagnosis (1) Tobacco abuse Is this a current diagnosis for this admission?: Yes (2) Right knee skin infection Is this a current diagnosis for this admission?: Yes Plan: - Due to improvement noted this AM, we will hold for OR at this time and re- evaluate in the AM for potential need for I&D. - Would appreciate evaluation by hospitalist - US reviewed demonstrates mostly soft tissue swelling rather than abscess, there is a small pocket inferior that may be drainable. Will re-evalute and potentially consider bedside I&D if necessary - Continue current abx - Cultures pending for lab and MRSA screen - Activity as tolerated - NPO at midnight. (3) Cellulitis Qualifiers: Site of cellulitis: extremity Site of cellulitis of extremity: lower extremity Laterality: right Qualified Code(s): L03.115 - Cellulitis of right lower limb Is this a current diagnosis for this admission?: Yes (4) Prepatellar bursitis of right knee Is this a current diagnosis for this admission?: Yes - Time Time Spent with patient: Less than 15 minutes
--- NOTE | 2019-06-04 15:23 | PDOC CONSULTATION ---
Consultation Consult Date: 06/04/19 Attending physician:: kassandra Provider Consulted: JENNY PENG Consult reason:: Medical comanagement History of Present Illness Admission Date/PCP: 06/03/19 19:49 History of Present Illness: NASH HENAO is a 59 year old male with no significant past medical history or prior medical diagnoses and not on any home medication who was admitted for a right prepatellar cellulitis with possible septic bursitis. Patient was started on IV vancomycin. No acute event overnight. Upon encounter this morning, he reports improvement of redness and tenderness on the right knee. Appears demarcations indicate that redness expanded on the anterior proximal part of the leg and distal part of the thigh. Redness appears to be receding. He has relatively good knee joint mobility and ROM. He denies chest pain shortness of breath. Upon physical examination, he has audible wheezes bilaterally. He denies prior diagnosis of COPD or asthma but smokes almost a pack of cigarettes a day. Past Medical History Cardiac Medical History: Reports: None Pulmonary Medical History: Reports: None EENT Medical History: Reports: None Neurological Medical History: Reports: None Endocrine Medical History: Reports: None Renal/ Medical History: Reports: None GI Medical History: Reports: None Musculoskeltal Medical History: Reports: None Skin Medical History: Reports: None Psychiatric Medical History: Reports: None Denies: Depression Traumatic Medical History: Reports: None Infectious Medical History: Reports: None Past Surgical History Past Surgical History: Reports: None Social History Lives with: Alone Smoking Status: Current Every Day Smoker Cigarettes Packs Per Day: 1 Electronic Cigarette use?: No Number of Years Smokin Last Time Smoked: today Frequency of Alcohol Use: Occasional Hx Recreational Drug Use: No Drugs: None Hx Prescription Drug Abuse: No - Advance Directive Resuscitation Status: Full Code Family History Family History: Reviewed & Not Pertinent Parental Family History Reviewed: Yes - No premature CAD Children Family History Reviewed: No Sibling(s) Family History Reviewed.: No Medication/Allergy Home Medications: Buffers/Ascorbic Acid [Vitamin C Powder] 227 gm PO DAILY 06/04/19 Multivitamin [Multiple Vitamins] 1 tab PO DAILY 06/04/19 Allergies/Adverse Reactions: No Known Allergies Allergy (Verified 05/27/19 17:15) Review of Systems All systems: reviewed and no additional remarkable complaints except as stated - As mentioned in HPI Physical Exam Vital Signs: Temp Pulse Resp BP Pulse Ox 97.8 F 70 14 158/71 H 96 06/04/19 11:36 06/04/19 14:00 06/04/19 14:00 06/04/19 11:36 06/04/19 14:00 Intake & Output 06/03/19 06/04/19 06/05/19 06:59 06:59 06:59 Intake Total 1622 1264 Output Total 275 Balance 1347 1264 Weight 150 lb 2.157 oz General appearance: PRESENT: no acute distress, well-developed, well-nourished Head exam: PRESENT: atraumatic, normocephalic Eye exam: PRESENT: conjunctiva pink, EOMI, PERRLA. ABSENT: scleral icterus Ear exam: PRESENT: normal external ear exam Mouth exam: PRESENT: moist, tongue midline Neck exam: ABSENT: carotid bruit, JVD, lymphadenopathy, thyromegaly Respiratory exam: PRESENT: clear to auscultation felice. ABSENT: rales, rhonchi, wheezes Cardiovascular exam: PRESENT: RRR. ABSENT: diastolic murmur, rubs, systolic murmur Pulses: PRESENT: normal dorsalis pedis pul GI/Abdominal exam: PRESENT: normal bowel sounds, soft. ABSENT: distended, guarding, mass, organolmegaly, rebound, tenderness Rectal exam: PRESENT: deferred Extremities exam: PRESENT: other - Appears demarcations indicate that redness expanded on the anterior proximal part of the leg and distal part of the thigh. Redness appears to be receding. He has relatively good knee joint mobility and ROM. Neurological exam: PRESENT: alert, awake, oriented to person, oriented to place, oriented to time, oriented to situation, CN II-XII grossly intact. ABSENT: motor sensory deficit Results Laboratory Results: 06/03/19 16:09 06/03/19 16:09 06/03/19 06/03/19 06/03/19 16:09 16:09 16:09 WBC 10.3 RBC 4.78 Hgb 15.0 Hct 43.1 MCV 90 MCH 31.3 MCHC 34.8 RDW 12.5 Plt Count 355 Seg Neutrophils % 62.1 Sodium 137.1 Potassium 4.4 Chloride 102 Carbon Dioxide 29 Anion Gap 6 BUN 14 Creatinine 0.75 Est GFR ( Amer) > 60 Glucose 92 Calcium 9.2 Total Bilirubin 0.3 AST 26 Alkaline Phosphatase 58 C-Reactive Protein 15.4 H Total Protein 7.0 Albumin 4.1 Urine Color Urine Appearance Urine pH Ur Specific Osgood Urine Protein Urine Glucose (UA) Urine Ketones Urine Blood Urine Nitrite Ur Leukocyte Esterase Urine WBC (Auto) Urine RBC (Auto) 06/03/19 20:30 WBC RBC Hgb Hct MCV MCH MCHC RDW Plt Count Seg Neutrophils % Sodium Potassium Chloride Carbon Dioxide Anion Gap BUN Creatinine Est GFR ( Amer) Glucose Calcium Total Bilirubin AST Alkaline Phosphatase C-Reactive Protein Total Protein Albumin Urine Color STRAW Urine Appearance CLEAR Urine pH 7.0 Ur Specific Osgood 1.004 Urine Protein NEGATIVE Urine Glucose (UA) NEGATIVE Urine Ketones NEGATIVE Urine Blood MODERATE H Urine Nitrite NEGATIVE Ur Leukocyte Esterase NEGATIVE Urine WBC (Auto) 1 Urine RBC (Auto) 3 Impressions: Chest X-Ray 06/03/19 00:00 IMPRESSION: No evidence of acute cardiopulmonary disease. Knee X-Ray 06/03/19 17:46 IMPRESSION: Prepatellar soft tissue swelling. No joint effusion. No osseous abnormality. Extremity Ultrasound 06/04/19 00:00 IMPRESSION: Subcutaneous edema along the right knee and patella with small more focal complex pockets which are not amenable to drainage. Findings possibly related to cellulitis. There is a more focal collection inferior to the knee measuring 4.1 x 4.1 x 0.6 cm. Assessment and Plan - Diagnosis (1) Prepatellar bursitis, right knee Is this a current diagnosis for this admission?: Yes Plan: Improving. On IV vancomycin. ID consult placed as requested by primary service as well as patient failed outpatient PO clindamycin. (2) Obstructive lung disease Is this a current diagnosis for this admission?: Yes Plan: Possible undiagnosed COPD. Will start breathing treatments and low dose PO steroids. Will order a bedside PFT as well. (3) Tobacco abuse Is this a current diagnosis for this admission?: Yes
[2019-06-05] MEDS: IPRATROPIUM/ALBUTEROL 0.5-2.5 MG/3 ML AMPUL NEB SCH ×4 (02:08→19:47)
[2019-06-05] MEDS: PIPERACILLIN SODIUM/TAZOBACTAM 3.375 GM in NORMAL SALINE 100 ML IV SCH ×3 (02:37→17:48)
[2019-06-05] MEDS: DOCUSATE SODIUM 100 MG CAPSULE PO SCH (09:17)
[2019-06-05] MEDS: ASPIRIN 325 MG TABLET PO SCH ×2 (09:19→18:58)
[2019-06-05] MEDS: ACETAMINOPHEN 325 MG TABLET PO PRN ×3 (09:19→18:58)
[2019-06-05] MEDS: PREDNISONE 10 MG TABLET PO SCH ×2 (09:19→18:58)
[2019-06-05] MEDS: VANCOMYCIN HCL 1,500 MG in DEXTROSE 5%-WATER 250 ML IV SCH (11:25)
[2019-06-05 11:57] LABS: VANCOMYCIN,TROUGH 8.8 ug/mL (5.0-20.0)
--- NOTE | 2019-06-05 14:17 | PDOC PROGRESS REPORT ---
Subjective Progress Note for:: 06/05/19 Subjective:: No acute event overnight. He says he continues to feel better. His wheezing has significantly improved with breathing treatments and steroids. Very minimal wheezing today. Redness continue to improve and recede with IV antibiotics. Reason For Visit: RIGHT KNEE PREPATELLAR SEPTIC BURSITIS Physical Exam Vital Signs: Temp Pulse Resp BP Pulse Ox 97.6 F 63 16 169/77 H 98 06/05/19 11:22 06/05/19 11:22 06/05/19 11:22 06/05/19 11:22 06/05/19 11:22 Intake & Output 06/04/19 06/05/19 06/06/19 06:59 06:59 06:59 Intake Total 1622 3924 100 Output Total 275 Balance 1347 3924 100 Weight 150 lb 2.157 oz 158 lb 8.198 oz General appearance: PRESENT: no acute distress, well-developed, well-nourished Head exam: PRESENT: atraumatic, normocephalic Eye exam: PRESENT: conjunctiva pink, EOMI, PERRLA. ABSENT: scleral icterus Ear exam: PRESENT: normal external ear exam Mouth exam: PRESENT: moist, tongue midline Neck exam: ABSENT: carotid bruit, JVD, lymphadenopathy, thyromegaly Respiratory exam: PRESENT: wheezes - minimal. ABSENT: rales, rhonchi Cardiovascular exam: PRESENT: RRR. ABSENT: diastolic murmur, rubs, systolic murmur Pulses: PRESENT: normal dorsalis pedis pul GI/Abdominal exam: PRESENT: normal bowel sounds, soft. ABSENT: distended, guarding, mass, organolmegaly, rebound, tenderness Rectal exam: PRESENT: deferred Extremities exam: PRESENT: other - redness on right knee Neurological exam: PRESENT: alert, awake, oriented to person, oriented to place, oriented to time, oriented to situation, CN II-XII grossly intact. ABSENT: motor sensory deficit Results Laboratory Results: 06/03/19 16:09 06/03/19 16:09 Impressions: Chest X-Ray 06/03/19 00:00 IMPRESSION: No evidence of acute cardiopulmonary disease. Knee X-Ray 06/03/19 17:46 IMPRESSION: Prepatellar soft tissue swelling. No joint effusion. No osseous abnormality. Extremity Ultrasound 06/04/19 00:00 IMPRESSION: Subcutaneous edema along the right knee and patella with small more focal complex pockets which are not amenable to drainage. Findings possibly related to cellulitis. There is a more focal collection inferior to the knee measuring 4.1 x 4.1 x 0.6 cm. Assessment and Plan - Diagnosis (1) Prepatellar bursitis, right knee Is this a current diagnosis for this admission?: Yes Plan: Improving. On IV vancomycin. ID consult placed as requested by primary service as well as patient failed outpatient PO clindamycin. 06/04: Continue to improve with IV antibiotics. (2) Obstructive lung disease Is this a current diagnosis for this admission?: Yes Plan: Possible undiagnosed COPD. Continue breathing treatments and low dose PO steroids. (3) Tobacco abuse Is this a current diagnosis for this admission?: Yes Plan: Counseled on cessation. - Time Time Spent with patient: 15-24 minutes
--- NOTE | 2019-06-05 14:56 | PDOC PROGRESS REPORT ---
Subjective Progress Note for:: 06/05/19 Subjective:: Patient is doing well. No new symptoms aside from LE swelling. He is doing well, compliant, wishes to ambulate. Reason For Visit: RIGHT KNEE PREPATELLAR SEPTIC BURSITIS Physical Exam Vital Signs: Temp Pulse Resp BP Pulse Ox 97.6 F 79 18 169/77 H 96 06/05/19 11:22 06/05/19 14:26 06/05/19 14:26 06/05/19 11:22 06/05/19 14:26 Intake & Output 06/04/19 06/05/19 06/06/19 06:59 06:59 06:59 Intake Total 1622 3924 100 Output Total 275 Balance 1347 3924 100 Weight 68.1 kg 71.9 kg Physical Exam: General appearance: PRESENT: no acute distress, cooperative, well-nourished Head exam: PRESENT: atraumatic, normocephalic Eye exam: PRESENT: EOMI Ear exam: PRESENT: normal external ear exam Mouth exam: PRESENT: neck supple Neck exam: ABSENT: tracheal deviation Respiratory exam: PRESENT: symmetrical, unlabored. ABSENT: accessory muscle use, wheezes Pulses: PRESENT: normal radial pulses, normal dorsalis pedis pul Vascular exam: PRESENT: normal capillary refill GI/Abdominal exam: ABSENT: distended, firm Extremities exam: PRESENT: full ROM of bilateral shoulders, elbows wrists, knees, hips and ankles without pain Musculoskeletal exam: PRESENT: full ROM, normal inspection Neurological exam: PRESENT: alert, awake, oriented to person, oriented to place, oriented to time Psychiatric exam: PRESENT: appropriate affect. ABSENT: agitated Focused psych exam: ABSENT: catatonic Skin exam: PRESENT: intact. ABSENT: dry All as above aside from that noted in the HPI and the following: Right knee with pre-patellar swelling. No open skin lesion, no drainage. On palpation it is difficult to appreciate a drainable abscess. May be soft tissue swelling and cellulitis more than an abscess. No palpable knee effusion. No tenderness outside of the prepatellar bursa area. There is a visible old eschar where prior lesion has healed over without any visible purulent collection or subcutaneous collection. Patient is able to tolerate ambulation without much pain. Mid range ROM is tolerable without pain to full extension, near full ROM capable but reports it feels tight to flexion past 90 Grossly NVI distally - Erythema has continued to improved and has remains focal about a 2-3cm radius about the patella. - The single area of fluid noted on US was marked following the US exam. It is not located over the erythematous area, and is not painful to palpation. This is likely unrelated to his cellulitis over the patella. Results Laboratory Results: 06/03/19 16:09 06/03/19 16:09 Impressions: Chest X-Ray 06/03/19 00:00 IMPRESSION: No evidence of acute cardiopulmonary disease. Knee X-Ray 06/03/19 17:46 IMPRESSION: Prepatellar soft tissue swelling. No joint effusion. No osseous abnormality. Extremity Ultrasound 06/04/19 00:00 IMPRESSION: Subcutaneous edema along the right knee and patella with small more focal complex pockets which are not amenable to drainage. Findings possibly related to cellulitis. There is a more focal collection inferior to the knee measuring 4.1 x 4.1 x 0.6 cm. Assessment & Plan - Diagnosis (1) Tobacco abuse Is this a current diagnosis for this admission?: Yes (2) Right knee skin infection Is this a current diagnosis for this admission?: Yes (3) Cellulitis Qualifiers: Site of cellulitis: extremity Site of cellulitis of extremity: lower e xtremity Laterality: right Qualified Code(s): L03.115 - Cellulitis of right lower limb Is this a current diagnosis for this admission?: Yes Plan: Pre-patellar cellulitis appears to be the etiology rather than abscess or septic bursitis given the results of the US and the clinical exam. - Small areal of fluctuance 1cm proximal and medial to the tibial tubercle is not likely infected. Will continue to monitor - ID consulted for mcc recommendations, continue current management until then - Plan for DC home tomorrow pending ID recs. - Will Re-evaluate in the AM - Not likely to require surgery. Maintain diet - Activity as tolerated (4) Prepatellar bursitis of right knee Is this a current diagnosis for this admission?: Yes - Time Time Spent with patient: 15-24 minutes
[2019-06-05] MEDS: VANCOMYCIN HCL 1,000 MG in DEXTROSE 5%-WATER 250 ML IV SCH (22:41)
[2019-06-06] MEDS: IPRATROPIUM/ALBUTEROL 0.5-2.5 MG/3 ML AMPUL NEB SCH ×4 (01:53→19:50)
[2019-06-06] MEDS: PIPERACILLIN SODIUM/TAZOBACTAM 3.375 GM in NORMAL SALINE 100 ML IV SCH ×3 (03:51→18:08)
[2019-06-06] MEDS: VANCOMYCIN HCL 1,000 MG in DEXTROSE 5%-WATER 250 ML IV SCH ×3 (06:04→22:10)
[2019-06-06] MEDS: ACETAMINOPHEN 325 MG TABLET PO PRN ×2 (08:03→14:40)
[2019-06-06 09:09] LABS: ABSOLUTE BASOPHILS # (AUTO) 0.1 10^3/uL (0.0-0.2); ABSOLUTE EOSINOPHILS # (AUTO) 0.3 10^3/uL (0.0-0.6); ABSOLUTE LYMPHOCYTES (AUTO) 2.6 10^3/uL (0.5-4.7); ABSOLUTE MONOCYTES (AUTO) 0.6 10^3/uL (0.1-1.4); ABSOLUTE NEUT (AUTO) 6.1 10^3/uL (1.7-8.2); BASOPHILS % (AUTO) 0.6 % (0-2); EOSINOPHILS % (AUTO) 3.5 % (0-6); HEMATOCRIT 37.6 % (37.9-51.0); LYMPHOCYTES % (AUTO) 26.7 % (13-45); MEAN CORPUSCULAR HEMOGLOBIN 31.7 pg (27.0-33.4); MEAN CORPUSCULAR HGB CONC 34.7 g/dL (32.0-36.0); MEAN CORPUSCULAR VOLUME 91 fl (80-97); MONOCYTES % (AUTO) 6.7 % (3-13); PLATELET COUNT 314 10^3/uL (150-450); RED BLOOD COUNT 4.12 10^6/uL (4.35-5.55); RED CELL DISTRIBUTION WIDTH 12.6 % (11.5-14.0); SEGMENTED NEUTROPHILS % (AUTO) 62.5 % (42-78); TOTAL CELLS COUNTED % (AUTO) 100 %; WHITE BLOOD COUNT 9.8 10^3/uL (4.0-10.5)
[2019-06-06 09:30] LABS: ANION GAP 7 (5-19); BLOOD UREA NITROGEN 6 mg/dL (7-20); CALCIUM 9.2 mg/dL (8.4-10.2); CARBON DIOXIDE 29 mmol/L (22-30); CHLORIDE 104 mmol/L (98-107); GLUCOSE 117 mg/dL (75-110); POTASSIUM 3.9 mmol/L (3.6-5.0)
--- NOTE | 2019-06-06 09:45 | PDOC PROGRESS REPORT ---
Subjective Progress Note for:: 06/06/19 Subjective:: Doing well this AM. Has been ambulating well without pain. Was concerned about his blood pressure over night but otherwise no new events. Pain is minimal. Reason For Visit: RIGHT KNEE PREPATELLAR SEPTIC BURSITIS Physical Exam Vital Signs: Temp Pulse Resp BP Pulse Ox 98.4 F 70 18 160/87 H 99 06/06/19 07:39 06/06/19 07:39 06/06/19 07:39 06/06/19 07:39 06/06/19 07:39 Intake & Output 06/05/19 06/06/19 06/07/19 06:59 06:59 06:59 Intake Total 3924 1370 250 Output Total 1000 Balance 3924 370 250 Weight 71.9 kg 74.1 kg Physical Exam: General appearance: PRESENT: no acute distress, cooperative, well-nourished Head exam: PRESENT: atraumatic, normocephalic Eye exam: PRESENT: EOMI Ear exam: PRESENT: normal external ear exam Mouth exam: PRESENT: neck supple Neck exam: ABSENT: tracheal deviation Respiratory exam: PRESENT: symmetrical, unlabored. ABSENT: accessory muscle use, wheezes Pulses: PRESENT: normal radial pulses, normal dorsalis pedis pul Vascular exam: PRESENT: normal capillary refill GI/Abdominal exam: ABSENT: distended, firm Extremities exam: PRESENT: full ROM of bilateral shoulders, elbows wrists, knees, hips and ankles without pain Musculoskeletal exam: PRESENT: full ROM, normal inspection Neurological exam: PRESENT: alert, awake, oriented to person, oriented to place, oriented to time Psychiatric exam: PRESENT: appropriate affect. ABSENT: agitated Focused psych exam: ABSENT: catatonic Skin exam: PRESENT: intact. ABSENT: dry All as above aside from that noted in the HPI and the following: Swelling much improved but still present. Erythema nearly completely resolved - ROM full without pain - No palpable fluctuance Results Laboratory Results: 06/06/19 08:55 06/05/19 06/06/19 10:59 08:55 WBC 9.8 RBC 4.12 L Hgb 13.0 L Hct 37.6 L MCV 91 MCH 31.7 MCHC 34.7 RDW 12.6 Plt Count 314 Seg Neutrophils % 62.5 C-Reactive Protein 22.9 H 06/04/19 08:45 Nasophary (Mrsa Only) MRSA Culture - Final NO MRSA RECOVERED Impressions: Chest X-Ray 06/03/19 00:00 IMPRESSION: No evidence of acute cardiopulmonary disease. Knee X-Ray 06/03/19 17:46 IMPRESSION: Prepatellar soft tissue swelling. No joint effusion. No osseous abnormality. Extremity Ultrasound 06/04/19 00:00 IMPRESSION: Subcutaneous edema along the right knee and patella with small more focal complex pockets which are not amenable to drainage. Findings possibly related to cellulitis. There is a more focal collection inferior to the knee measuring 4.1 x 4.1 x 0.6 cm. Assessment & Plan - Diagnosis (1) Tobacco abuse Is this a current diagnosis for this admission?: Yes (2) Right knee skin infection Is this a current diagnosis for this admission?: Yes (3) Cellulitis Qualifiers: Site of cellulitis: extremity Site of cellulitis of extremity: lower extremity Laterality: right Qualified Code(s): L03.115 - Cellulitis of right lower limb Is this a current diagnosis for this admission?: Yes Plan: - ID consult pending, prolonged response time - I am going to reach out to another ID source as I believe that the patient may be able to return home if he were to have the right Abx - US RLE due to swelling to rule out DVT - Activity as tolerated - Potential discharge home today (4) Prepatellar bursitis of right knee Is this a current diagnosis for this admission?: Yes - Time Time Spent with patient: 15-24 minutes
[2019-06-06] MEDS: PREDNISONE 10 MG TABLET PO SCH ×2 (10:21→18:08)
[2019-06-06] MEDS: ASPIRIN 325 MG TABLET PO SCH ×2 (10:21→18:08)
[2019-06-06] MEDS: DOCUSATE SODIUM 100 MG CAPSULE PO SCH (10:25)
--- NOTE | 2019-06-06 13:00 | XCELERA REPORT ---
[address] [place] [facility] [address] Lower Extremity Venous Evaluation Procedure: Color flow and duplex imaging of the veins of the right lower extremity as well as the left Common Femoral vein. Right Sided Venous Evaluation Normal vessel filling wall to wall, compression and augmentation as well as Colour flow down to the infrageniculate veins. Left Sided Venous Evaluation The left common femoral vein is fully compressible. Spontaneous and phasic flow is present in the left common femoral vein. Interpretation Summary No duplex evidence of DVT or obstruction in the right lower extremity nor in the left Common Femoral vein. Name: NASH HENAO Age: 59 yrs Gender: Male : 1960 Patient Status: Inpatient Patient Location: [facility]^A Study Date: 06/06/2019 11:38 AM Reason For Study: lower extremity swelling, eval for DVT Ordering Physician: DEBRA CALIX Performed By: Ambika William : DEBRA CALIX > Christophe Blood
--- NOTE | 2019-06-06 14:15 | PDOC PROGRESS REPORT ---
Subjective Progress Note for:: 06/06/19 Subjective:: 06/05: He says he continues to feel better. His wheezing has significantly improved with breathing treatments and steroids. Very minimal wheezing today. Redness continue to improve and recede with IV antibiotics. 06/06: No acute event overnight. Denies acute complaints. Denies shortness of breath. He has clear breath sounds this morning. Erythema continues to improve in the right knee. Patient was initially hesitant about starting any antihypertensive. After lengthy discussion, he finally agreed to be started on a low-dose antihypertensive. Will start patient on amlodipine 5 mg daily. Reason For Visit: RIGHT KNEE PREPATELLAR SEPTIC BURSITIS Physical Exam Vital Signs: Temp Pulse Resp BP Pulse Ox 98.4 F 70 18 160/87 H 99 06/06/19 07:39 06/06/19 07:39 06/06/19 07:39 06/06/19 07:39 06/06/19 07:39 Intake & Output 06/05/19 06/06/19 06/07/19 06:59 06:59 06:59 Intake Total 3924 1470 250 Output Total 1000 Balance 3924 470 250 Weight 158 lb 8.198 oz 163 lb 5.8 oz General appearance: PRESENT: no acute distress, well-developed, well-nourished Head exam: PRESENT: atraumatic, normocephalic Eye exam: PRESENT: conjunctiva pink, EOMI, PERRLA. ABSENT: scleral icterus Ear exam: PRESENT: normal external ear exam Mouth exam: PRESENT: moist, tongue midline Neck exam: ABSENT: carotid bruit, JVD, lymphadenopathy, thyromegaly Respiratory exam: PRESENT: clear to auscultation felice. ABSENT: rales, rhonchi, wheezes Cardiovascular exam: PRESENT: RRR. ABSENT: diastolic murmur, rubs, systolic murmur Pulses: PRESENT: normal dorsalis pedis pul GI/Abdominal exam: PRESENT: normal bowel sounds, soft. ABSENT: distended, guarding, mass, organolmegaly, rebound, tenderness Rectal exam: PRESENT: deferred Extremities exam: PRESENT: other - receding erythema on the right knee Neurological exam: PRESENT: alert, awake, oriented to person, oriented to place, oriented to time, oriented to situation, CN II-XII grossly intact. ABSENT: motor sensory deficit Results Laboratory Results: 06/06/19 08:55 06/06/19 08:55 06/05/19 06/06/19 06/06/19 10:59 08:55 08:55 WBC 9.8 RBC 4.12 L Hgb 13.0 L Hct 37.6 L MCV 91 MCH 31.7 MCHC 34.7 RDW 12.6 Plt Count 314 Seg Neutrophils % 62.5 Sodium 140.3 Potassium 3.9 Chloride 104 Carbon Dioxide 29 Anion Gap 7 BUN 6 L Creatinine 0.62 Est GFR ( Amer) > 60 Glucose 117 H Calcium 9.2 C-Reactive Protein 22.9 H 06/04/19 08:45 Nasophary (Mrsa Only) MRSA Culture - Final NO MRSA RECOVERED Impressions: Chest X-Ray 06/03/19 00:00 IMPRESSION: No evidence of acute cardiopulmonary disease. Knee X-Ray 06/03/19 17:46 IMPRESSION: Prepatellar soft tissue swelling. No joint effusion. No osseous abnormality. Extremity Ultrasound 06/04/19 00:00 IMPRESSION: Subcutaneous edema along the right knee and patella with small more focal complex pockets which are not amenable to drainage. Findings possibly related to cellulitis. There is a more focal collection inferior to the knee measuring 4.1 x 4.1 x 0.6 cm. Assessment and Plan - Diagnosis (1) Prepatellar bursitis, right knee Is this a current diagnosis for this admission?: Yes Plan: Improving. On IV vancomycin. ID consult placed as requested by primary service as well as patient failed outpatient PO clindamycin. 06/04: Continue to improve with IV antibiotics. 06/06: Awaiting further ID recommendations as he failed oral clindamycin at home. (2) Obstructive lung disease Is this a current diagnosis for this admission?: Yes Plan: Possible undiagnosed COPD. Continue breathing treatments and low dose PO steroids. 06/06: No need to be discharged on steroids. Counseled patient about getting a formal PFT outpatient. (3) Tobacco abuse Is this a current diagnosis for this admission?: Yes Plan: Counseled on cessation. (4) HTN (hypertension) Is this a current diagnosis for this admission?: Yes Plan: Start amlodipine 5 mg daily. - Time Time Spent with patient: 15-24 minutes
[2019-06-06] MEDS: AMLODIPINE BESYLATE 5 MG TABLET PO SCH (14:38)
[2019-06-07] MEDS: IPRATROPIUM/ALBUTEROL 0.5-2.5 MG/3 ML AMPUL NEB SCH ×2 (02:00→08:00)
[2019-06-07] MEDS: PIPERACILLIN SODIUM/TAZOBACTAM 3.375 GM in NORMAL SALINE 100 ML IV SCH ×2 (02:46→09:17)
[2019-06-07] MEDS: VANCOMYCIN HCL 1,000 MG in DEXTROSE 5%-WATER 250 ML IV SCH (06:19)
[2019-06-07 06:23] LABS: VANCOMYCIN,TROUGH 9.9 ug/mL (5.0-20.0)
[2019-06-07] MEDS ORDERED: CEPHALEXIN 500 MG CAPSULE PO SCH (07:30)
--- NOTE | 2019-06-07 07:48 | PDOC DISCHARGE SUMMARY ---
Impression - Admit/DC Date/PCP Admission Date/Primary Care Provider: 06/03/19 19:49 Dexter Calix, Discharge Date: 06/07/19 - Discharge Diagnosis (1) Tobacco abuse Is this a current diagnosis for this admission?: Yes (2) Right knee skin infection Is this a current diagnosis for this admission?: Yes (3) Cellulitis Is this a current diagnosis for this admission?: Yes (4) Prepatellar bursitis of right knee Is this a current diagnosis for this admission?: Yes - Assessment Summary: Patient was admitted on 06/04/2019 with prepatellar cellulitis that was concerning for septic bursitis. I admitted him and placed him on IV antibiotics and over the course of the next 3 days his condition significantly improved to be ultimately stable for just discharged today. He has been ambulating throughout the stay. He is tolerated pain both with walking and range of motion which indicates an extremely unlikely etiology of septic arthritis. I consulted an outside infectious disease specialist for long-term recommendations because the service that was consulted on Friday has still yet to return any communication. I am prescribing him with high-dose cephalexin for the next 10 days. I will see him in the office for any further issues and for final follow- up. Over the course of his stay he had no acute events or complications. He did have a concern on Friday night for increased swelling. We did order a ultrasound to rule out DVT. I expect this is a reactive edema due to the diffuse skin cellulitis around the knee and as of today it is nearly completely resolved. There was no DVT found on ultrasound. Patient also had a hospitalist consulted during his stay. He had some shortness of breath and mild hypoxia which was treated with nebulizers. He is been written a prescription for this as an outpatient. I explained to him in detail that I do not treat this in the long run and he will need to follow-up with a family doctor for continued management. He understands that he does not currently have a family doctor and will need to establish care with family medicine in the next few weeks. Until that time I am happy to see him in my office in continue to manage any issues that he needs in the next few weeks until that care is established. Additionally he had mild hypertension, which treated with amlodipine. I have also prescribed him with a prescription for this and have given him the same instructions as above. He is cleared to return to work at this time. - Additional Information Resuscitation Status: Full Code Discharge Diet: As Tolerated Discharge Activity: Activity As Tolerated Referrals: [facility] [Outside] DEXTER CALIX JR, DO [ACTIVE PROVISIONAL STAFF] - Prescriptions: Ipratropium/Albuterol Sulfate [Duoneb 3 ml Ampul] 3 ml NEB RTQ6 28 Days #7 vial.neb Cephalexin Monohydrate [Keflex 500 mg Capsule] 1,000 mg PO Q8 10 Days #30 capsule Amlodipine Besylate [Norvasc 5 mg Tablet] 5 mg PO DAILY #30 tablet Home Medications: Buffers/Ascorbic Acid [Vitamin C Powder] 227 gm PO DAILY 06/04/19 Multivitamin [Multiple Vitamins] 1 tab PO DAILY 06/04/19 Acetaminophen [Tylenol 325 mg Tablet] 650 mg PO Q4HP PRN tablet 06/06/19 Amlodipine Besylate [Norvasc 5 mg Tablet] 5 mg PO DAILY #30 tablet 06/06/19 Aspirin [Aspirin 325 mg Tablet] 325 mg PO BID #0 tablet 06/06/19 Ipratropium/Albuterol Sulfate [Duoneb 3 ml Ampul] 3 ml NEB RTQ6 28 Days #7 vial.neb 06/06/19 Cephalexin Monohydrate [Keflex 500 mg Capsule] 1,000 mg PO Q8 10 Days #30 capsule 06/07/19 History of Present Illiness History of Present Illness: Patient presented with a right knee cellulitis that was treated with clindamycin a week prior and failed to respond to treatment. He showed up at the emergency department on Friday with progressive cellulitis and was admitted for IV antibiotics and potentially operative debridement of his septic bursa. Upon further evaluation this was not found to actually be a septic bursitis but rather a diffuse cellulitis. He denies any fevers chills prior to admission. He reports that a spider bite was likely the cause and he ended up picking at the bite initially with a pocket knife. Following that incident the knee continued to swell and become inflamed. At one point there was scant drainage however over the past week there had been no drainage. And over the course of his stay there is no drainage. Physical Exam Vital Signs: Temp Pulse Resp BP Pulse Ox 98.3 F 78 18 152/76 H 99 06/06/19 19:46 06/06/19 19:46 06/06/19 19:46 06/06/19 19:46 06/06/19 15:39 Intake & Output 06/05/19 06/06/19 06/07/19 06:59 06:59 06:59 Intake Total 3924 1470 1660 Output Total 1000 Balance 3924 470 1660 Weight 71.9 kg 74.1 kg Results Laboratory Results: WBC 9.8 10^3/uL (4.0-10.5) 06/06/19 08:55 RBC 4.12 10^6/uL (4.35-5.55) L 06/06/19 08:55 Hgb 13.0 g/dL (13.5-17.0) L 06/06/19 08:55 Hct 37.6 % (37.9-51.0) L 06/06/19 08:55 MCV 91 fl (80-97) 06/06/19 08:55 MCH 31.7 pg (27.0-33.4) 06/06/19 08:55 MCHC 34.7 g/dL (32.0-36.0) 06/06/19 08:55 RDW 12.6 % (11.5-14.0) 06/06/19 08:55 Plt Count 314 10^3/uL (150-450) 06/06/19 08:55 Lymph % (Auto) 26.7 % (13-45) 06/06/19 08:55 [place] % (Auto) 6.7 % (3-13) 06/06/19 08:55 Eos % (Auto) 3.5 % (0-6) 06/06/19 08:55 Baso % (Auto) 0.6 % (0-2) 06/06/19 08:55 Absolute Neuts (auto) 6.1 10^3/uL (1.7-8.2) 06/06/19 08:55 Absolute Lymphs (auto) 2.6 10^3/uL (0.5-4.7) 06/06/19 08:55 Absolute Monos (auto) 0.6 10^3/uL (0.1-1.4) 06/06/19 08:55 Absolute Eos (auto) 0.3 10^3/uL (0.0-0.6) 06/06/19 08:55 Absolute Basos (auto) 0.1 10^3/uL (0.0-0.2) 06/06/19 08:55 Seg Neutrophils % 62.5 % (42-78) 06/06/19 08:55 Sodium 140.3 mmol/L (137-145) 06/06/19 08:55 Potassium 3.9 mmol/L (3.6-5.0) 06/06/19 08:55 Chloride 104 mmol/L (98-107) 06/06/19 08:55 Carbon Dioxide 29 mmol/L (22-30) 06/06/19 08:55 Anion Gap 7 (5-19) 06/06/19 08:55 BUN 6 mg/dL (7-20) L 06/06/19 08:55 Creatinine 0.62 mg/dL (0.52-1.25) 06/06/19 08:55 Est GFR ( Amer) > 60 (>60) 06/06/19 08:55 Est GFR (MDRD) Non-Af > 60 (>60) 06/06/19 08:55 Glucose 117 mg/dL (75-110) H 06/06/19 08:55 Calcium 9.2 mg/dL (8.4-10.2) 06/06/19 08:55 Total Bilirubin 0.3 mg/dL (0.2-1.3) 06/03/19 16:09 Direct Bilirubin 0.2 mg/dL (0.0-0.4) 06/03/19 16:09 Neonat Total Bilirubin Not Reportable 06/03/19 16:09 Neonat Direct Bilirubin Not Reportable 06/03/19 16:09 Neonat Indirect Bili Not Reportable 06/03/19 16:09 AST 26 U/L (17-59) 06/03/19 16:09 ALT 25 U/L (<50) 06/03/19 16:09 Alkaline Phosphatase 58 U/L (38-126) 06/03/19 16:09 C-Reactive Protein 22.9 mg/L (<10.0) H 06/05/19 10:59 Total Protein 7.0 g/dL (6.3-8.2) 06/03/19 16:09 Albumin 4.1 g/dL (3.5-5.0) 06/03/19 16:09 Urine Color STRAW 06/03/19 20:30 Urine Appearance CLEAR 06/03/19 20:30 Urine pH 7.0 (5.0-9.0) 06/03/19 20:30 Ur Specific [place] 1.004 06/03/19 20:30 Urine Protein NEGATIVE mg/dL (NEGATIVE) 06/03/19 20:30 Urine Glucose (UA) NEGATIVE mg/dL (NEGATIVE) 06/03/19 20:30 Urine Ketones NEGATIVE mg/dL (NEGATIVE) 06/03/19 20:30 Urine Blood MODERATE (NEGATIVE) H 06/03/19 20:30 Urine Nitrite NEGATIVE (NEGATIVE) 06/03/19 20:30 Urine Bilirubin NEGATIVE (NEGATIVE) 06/03/19 20:30 Urine Urobilinogen NEGATIVE mg/dL (<2.0) 06/03/19 20:30 Ur Leukocyte Esterase NEGATIVE (NEGATIVE) 06/03/19 20:30 Urine WBC (Auto) 1 /HPF 06/03/19 20:30 Urine RBC (Auto) 3 /HPF 06/03/19 20:30 Urine Bacteria (Auto) TRACE /HPF 06/03/19 20:30 Urine Ascorbic Acid NEGATIVE (NEGATIVE) 06/03/19 20:30 Time Trough Drawn 1059 06/05/19 10:59 Vancomycin Trough 8.8 ug/mL (5.0-20.0) 06/05/19 10:59 Urine Opiates Screen NEGATIVE 06/03/19 20:30 Urine Methadone Screen NEGATIVE 06/03/19 20:30 Ur Barbiturates Screen NEGATIVE 06/03/19 20:30 Ur Phencyclidine Scrn NEGATIVE 06/03/19 20:30 Ur Amphetamines Screen NEGATIVE 06/03/19 20:30 U Benzodiazepines Scrn NEGATIVE 06/03/19 20:30 Urine Cocaine Screen NEGATIVE 06/03/19 20:30 U Marijuana (THC) Screen NEGATIVE 06/03/19 20:30 Impressions: Chest X-Ray 06/03/19 00:00 IMPRESSION: No evidence of acute cardiopulmonary disease. Knee X-Ray 06/03/19 17:46 IMPRESSION: Prepatellar soft tissue swelling. No joint effusion. No osseous abnormality. Extremity Ultrasound 06/04/19 00:00 IMPRESSION: Subcutaneous edema along the right knee and patella with small more focal complex pockets which are not amenable to drainage. Findings possibly related to cellulitis. There is a more focal collection inferior to the knee measuring 4.1 x 4.1 x 0.6 cm. Stroke Is this a Stroke Patient?: No Acute Heart Failure - Is this a Heart Failure Patient?: No
[2019-06-07] MEDS: DOCUSATE SODIUM 100 MG CAPSULE PO SCH (09:13)
[2019-06-07] MEDS: ACETAMINOPHEN 325 MG TABLET PO PRN (09:22)
[2019-06-07] MEDS: AMLODIPINE BESYLATE 5 MG TABLET PO SCH (09:23)
[2019-06-07] MEDS: PREDNISONE 10 MG TABLET PO SCH (09:23)
[2019-06-07] MEDS: ASPIRIN 325 MG TABLET PO SCH (09:23)
[2019-06-07 09:30] VITALS: BP 143/69
--- NOTE | 2019-06-07 11:04 | Pulmonary Function Test ---
Pulmonary Function Test Date of Procedure:: 06/07/19 INDICATION:: Dyspnea Referring Provider: Dr.Randall Nathan Judd Jr. Chips Screen Tender: Mara Garcia RRT, PALEOBOTANIST - Report Spirometry: Spirometry: pre-FVC: 3.37 L 74% post-FVC: 4.41 L 97% pre-FEV:1 2.32 L 67% post-FEV1: 2.60 L 76% pre-FEV1/FVC %: 66 post-FEV1/FVC%: 59 predicted: 75 [id number]%: 1.95 69% [id number]%: 1.72 L 61% Impression: Mild obstructive ventilatory defect. Insignificant response to bronchodilator therapy. This in and of itself does not preclude a clinical trial of bronchodil ator therapy.
== END 2019-06-07 09:45 | disposition home or self-care (01) | DRG 558 ==
LOC: ER 15:41 → EH 19:49 → 4N 21:38
PROVIDERS: ADMIT Orthopaedic Surgery; ATTEND Orthopaedic Surgery
DX: M71.161 Other infective bursitis, right knee (principal); L03.115 Cellulitis of right lower limb; I10 Essential (primary) hypertension; F17.210 Nicotine dependence, cigarettes, uncomplicated; Z60.2 Problems related to living alone; Z23 Encounter for immunization; Z79.899 Other long term (current) drug therapy
CPT/HCPCS: 36415; 71045; 76882; 80048; 80053; 80202; 80307; 81001; 85025; 86140; 87040; 87070; 90686; 93005; 93010; 93971; 94060; 94640; 99284; 99406; J2543; J3370; J7030; J7050; J7060; J7512; J7620

== ENCOUNTER → 2019-09-15 | Outpatient (CLI) | payer OTHER ==
--- NOTE | 2019-09-15 12:27 | RADIOLOGY REPORT (SQ) ---
EXAM DESCRIPTION: SACRUM AND COCCYX COMPLETED DATE/TIME: 09/15/2019 12:11 pm REASON FOR STUDY: INTERVERTEBRAL DISC DISORDERS WITH MYELOPATHY, LUMBAR REGION I10 ESSENTIAL (PRIMA RY) HYPERTENSION M51.06 INTERVERTEBRAL DISC DISORDERS WITH MYELOPATHY, LUMBAR COMPARISON: None. NUMBER OF VIEWS: Three views. TECHNIQUE: AP, lateral, and tilt views of the sacrum and coccyx. LIMITATIONS: None. FINDINGS: MINERALIZATION: Normal. BONES: No acute fracture or dislocation. No worrisome bone lesions. SOFT TISSUES: No soft tissue swelling. No foreign body. OTHER: No other significant finding. IMPRESSION: NEGATIVE STUDY OF THE SACRUM AND COCCYX. TECHNICAL DOCUMENTATION: JOB ID: [id number] [employer]- All Rights Reserved Reading location - IP/workstation name: [email or web address]
--- NOTE | 2019-09-15 12:27 | RADIOLOGY REPORT (SQ) ---
EXAM DESCRIPTION: LUMBAR SPINE 2 VIEWS COMPLETED DATE/TIME: 09/15/2019 12:11 pm REASON FOR STUDY: INTERVERTEBRAL DISC DISORDERS WITH MYELOPATHY, LUMBAR REGION I10 ESSENTIAL (PRIMA RY) HYPERTENSION M51.06 INTERVERTEBRAL DISC DISORDERS WITH MYELOPATHY, LUMBAR COMPARISON: None. NUMBER OF VIEWS: Two views. TECHNIQUE: AP and lateral radiographic images acquired of the lumbar spine. LIMITATIONS: None. FINDINGS: MINERALIZATION: Normal. SEGMENTATION: Normal. No transitional anatomy. ALIGNMENT: There is grade 1-2 anterolisthesis of L5 on S1. VERTEBRAE: Maintained height. No fracture or worrisome bone lesion. DISCS: Disc space narrowing at L5-S1. POSTERIOR ELEMENTS: Pedicles and facets are intact. No pars defect or posterior arch defects. HARDWARE: None in the spine. PARASPINAL SOFT TISSUES: Normal. PELVIS: Intact as visualized. No fractures or worrisome bone lesions. SI joints intact. OTHER: No other significant finding. IMPRESSION: Grade 1-2 anterolisthesis of L5 on S1. Disc space narrowing at the same level. Possibl e pars defects. Recommend oblique views for further evaluation. TECHNICAL DOCUMENTATION: JOB ID: [id number]- All Rights Reserved Reading location - IP/workstation name: [email or web address]
[2019-09-15 13:05] LABS: ALBUMIN 4.7 g/dL (3.5-5.0); ALKALINE PHOSPHATASE 54 U/L (38-126); ANION GAP 6 (5-19); ASPARTATE AMINO TRANSFERASE 25 U/L (17-59); BILIRUBIN,TOTAL 0.4 mg/dL (0.2-1.3); BLOOD UREA NITROGEN 14 mg/dL (7-20); CARBON DIOXIDE 31 mmol/L (22-30); CHLORIDE 103 mmol/L (98-107); CHOLESTEROL 187.08 mg/dL (0-200); GLUCOSE 79 mg/dL (75-110); POTASSIUM 4.4 mmol/L (3.6-5.0); TOTAL PROTEIN 7.7 g/dL (6.3-8.2); TRIGLYCERIDES 129 mg/dL (<150); URIC ACID 4.5 mg/dL (3.5-8.5)
[2019-09-15 13:16] LABS: DIRECT LDL 134 mg/dL (<100)
== END ==
LOC: CCC 11:43
DX: I10 Essential (primary) hypertension (principal); M51.06 Intervertebral disc disorders with myelopathy, lumbar region
CPT/HCPCS: 36415; 72100; 72220; 80053; 80061; 83036; 84550